=== PATIENT | male | born 1950 | race Caucasian/White ===

== ENCOUNTER 2018-08-28 17:02 | Emergency (ER) | payer MEDICARE, BC ==
--- NOTE | 2018-08-28 19:15 | CRLCR ---
INDICATION: Fever TECHNIQUE: Chest 2 views COMPARISON: July 10, 2008. FINDINGS: Cardiovascular and mediastinum: Heart size and vasculature are normal in caliber and appearance. Lungs and pleural spaces: Lungs are clear. No sign of infiltrate or mass. No sign of pleural effusion. No pneumothorax. Bones and soft tissues: No significant findings. IMPRESSION: Unremarkable chest. No sign of pneumonia. Dictated by Gatito Díaz MD @ Aug 28 2018 7:12PM Signed by Dr. Gatito Díaz @ Aug 28 2018 7:13PM
--- NOTE | 2018-08-28 21:50 | EDM.PDOC ---
ED HPI GENERAL MEDICAL PROBLEM - General Chief Complaint: Fever Stated Complaint: fever surgery 5 wks ago Time Seen by Provider: 08/28/18 18:08 Source of Information: Reports: Patient History Limitations: Reports: No Limitations - History of Present Illness INITIAL COMMENTS - FREE TEXT/NARRATIVE: This gentleman who is a heart transplant patient was seen in clinic today because of a fever which started this morning. The patient is on immunosuppression. Also he had a right total knee replacement about 6 weeks ago. He had just a little bit of cough last night but nothing serious he's not having any kind of body aches. He said his right knee is hurting just a little bit more than usual but he stopped taking his tramadol this morning. He said his knee is always a little bit red and always feels a little bit warm. His agreed with him as but she thought there might be a little tiny bit of redness to the lateral side of the the. He's walking on it and it doesn't seem to bother him more than normal. Overall he doesn't have any particular symptoms of an infection. He did mention that he had a gangrenous gallbladder sometime back and had no abdominal pain with it is because he doesn't get much abdominal pain ever since the heart transplant. He's followed at [facility] by the heart team and orthopedics. He has an appointment with or though on Friday or 4 days from now - Related Data Allergies Allergy/AdvReac Type Severity Reaction Status Date / Time amoxicillin trihydrate AdvReac Diarrhea Verified 08/28/18 17:33 [From Augmentin] meperidine HCl [From Demerol] AdvReac Nausea Verified 08/28/18 17:33 pantoprazole sodium AdvReac Dizziness Verified 08/28/18 17:33 [From Protonix] potassium clavulanate AdvReac Diarrhea Verified 08/28/18 17:33 [From Augmentin] Home Meds: Home Meds Acarbose [Precose] 25 mg PO TID 02/14/14 [History] Aspirin [Adult Low Dose Aspirin EC] 1 tab PO BID 02/14/14 [History] Calcium Carbonate/Vitamin D3 [Calcium 500-Vit D3 200 Caplet] 2 each PO ACBREAKFAST 02/14/14 [History] Cholecalciferol (Vitamin D3) [Vitamin D3] 5,000 unit PO DAILY 02/14/14 [History] Cyanocobalamin (Vitamin B-12) [Cyanocobalamin Injection] 1,000 mcg IJ ASDIRECTED 02/14/14 [History] Fluticasone Propionate [Flonase] 1 spray HUONG BID 02/14/14 [History] Hydrocodone/Acetaminophen [[place] 7.5-325] 1 tab PO Q6HR PRN 02/14/14 [History] Levothyroxine [Synthroid] 50 mcg PO ACBRK 02/14/14 [History] Lisinopril 15 mg PO BID 02/14/14 [History] Multivitamin [Multi-Vitamin Daily] 1 tab PO DAILY 02/14/14 [History] Mycophenolate Mofetil [Cellcept] 1,000 mg PO BID 02/14/14 [History] Ondansetron [Zofran] 4 mg PO ASDIRECTED PRN 02/14/14 [History] Verapamil [Calan SR] 180 mg PO BEDTIME 02/14/14 [History] Zolpidem Tartrate [Ambien] 10 mg PO ASDIRECTED PRN 02/14/14 [History] cycloSPORINE, Modified [Neoral] 70 mg PO BID 02/14/14 [History] traMADol [Ultram] 50 mg PO Q6HR PRN 02/14/14 [History] Loratadine [Claritin] 10 mg PO DAILY 03/27/16 [History] diphenhydrAMINE [Benadryl] 25 mg PO Q4H PRN 03/27/16 [History] Pravastatin Sodium 1 tab PO BEDTIME 03/04/18 [History] Magnesium Oxide [Magnesium] 400 mg PO DAILY 03/05/18 [History] Past Medical History HEENT History: Reports: Sinusitis Other HEENT History: from CPAP Cardiovascular History: Reports: [place] Respiratory History: Reports: Pneumonia, Recurrent, Sleep Apnea Gastrointestinal History: Reports: Bowel Obstruction, Other (See Below) Other Gastrointestinal History: RNY Genitourinary History: Reports: None Musculoskeletal History: Reports: Arthritis, Back Pain, Chronic, Other (See Below) Other Musculoskeletal History: no tendons in right knee Neurological History: Reports: None Psychiatric History: Reports: None Endocrine/Metabolic History: Reports: Diabetes, Type II, Other (See Below) Other Endocrine/Metabolic History: hypoglycemic Hematologic History: Reports: Other (See Below) Other Hematologic History: plavix pre transplant Immunologic History: Reports: None Oncologic (Cancer) History: Reports: None Dermatologic History: Reports: Melanoma Other Dermatologic History: pre-melanoma - Infectious Disease History Infectious Disease History: Reports: Other (See Below) 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 - Past Surgical History Head Surgeries/Procedures: Reports: None HEENT Surgical History: Reports: None Cardiovascular Surgical History: Reports: Coronary Artery Bypass, Other (See Below) Other Cardiovascular Surgeries/Procedures: heart trasplant - CABG x5 GI Surgical History: Reports: Small Bowel, Other (See Below) Other GI Surgeries/Procedures: harini Male Surgical History: Reports: None Neurological Surgical History: Reports: None Musculoskeletal Surgical History: Reports: Knee Replacement, Other (See Below) Other Musculoskeletal Surgeries/Procedures:: trigger point injections Oncologic Surgical History: Reports: None Dermatological Surgical History: Reports: None Social & Family History - Tobacco Use Smoking Status *Q: Never Smoker - Caffeine Use Caffeine Use: Reports: Soda - Living Situation & Occupation Living situation: Reports: Occupation: Retired ED ROS GENERAL - Review of Systems Review Of Systems: See Below Constitutional: Reports: Fever. Denies: Malaise, Weakness, Fatigue, Night Sweats, Diaphoresis, Decreased Appetite HEENT: Reports: No Symptoms Respiratory: Reports: Cough (Very slight cough nonproductive) Cardiovascular: Reports: No Symptoms Endocrine: Reports: No Symptoms GI/Abdominal: Reports: No Symptoms, Diarrhea (He has chronic diarrhea due to the [place]-en-Y but nothing unusual today). Denies: Abdominal Pain, Distension, Flatus, Hematemesis, Hematochezia, Melena, Nausea, Vomiting : Reports: Other (His urine output is a lot less today but he denies any kind of dysuria) Musculoskeletal: Reports: Other Skin: Reports: Other (See history of present illness see history of present illness) Neurological: Reports: No Symptoms Psychiatric: Reports: No Symptoms, Other ED EXAM, SEPSIS - Physical Exam Exam: See Below Exam Limited By: No Limitations General Appearance: Alert, WD/WN, No Apparent Distress Eye Exam: Bilateral Eye: Normal Inspection Ears: Normal TMs Nose: Normal Inspection, Other (Sinuses nontender) Throat/Mouth: Normal Gums, Normal Oropharynx Head: Atraumatic Neck: Normal Inspection, Supple, Non-Tender Respiratory/Chest: Lungs Clear Cardiovascular: Normal Peripheral Pulses, Regular Rate, Rhythm, No Murmur GI/Abdominal Exam: Soft, Non-Tender, No Distention, No Mass (Male) Exam: Other (Review of systems showed no problems other than decreased urine output) Back: Normal Inspection Extremities: Other (There is a well-healed midline scar the right knee. There is some mild erythema and mildly increased warmth of the right knee but there is no tenderness. There was some fullness both medial and lateral to the upper half of the patella and then extending into the patellar tendon that suggested possibly a little bit of effusion. That area also is nontender.) Neurological: Alert Course - Vital Signs Last Recorded V/S: Last Vital Signs Temp 37.2 C 08/28/18 17:42 Pulse 109 H 08/28/18 17:42 Resp 16 08/28/18 17:42 BP 135/88 08/28/18 17:42 Pulse Ox 100 08/28/18 17:42 - Orders/Labs/Meds Orders: Active Orders 24 hr Category Date Time Status CULTURE BLOOD [BC] Urgent Lab 08/28/18 18:40 Received CULTURE BLOOD [BC] Urgent Lab 08/28/18 18:50 Received Blood Culture x2 Reflex Set [OM.PC] Urgent Oth 08/28/18 18:36 Ordered Labs: Laboratory Tests 08/28/18 08/28/18 08/28/18 Range/Units 18:40 18:40 18:56 ESR 15 (0-20) mm/hr Lactic Acid 1.4 (0.7-2.1) mmol/L C-Reactive Protein 0.22 (0.0-0.3) mg/dL Meds: Medications Discontinued Medications Generic Name Dose Route Start Last Admin Trade Name Stephanie PRN Reason Stop Dose Admin Lidocaine HCl 5 ml 08/28/18 18:58 08/28/18 19:00 Xylocaine-Mpf 1% INJECT 08/28/18 18:59 5 ml ONETIME ONE Administration - Radiology Interpretation Free Text/Narrative:: Chest x-ray showed no acute cardiopulmonary process - Re-Assessments/Exams Free Text/Narrative Re-Assessment/Exam: 08/28/18 21:50 Procedure aspiration of the right knee.: I discussed the risk and benefits of doing the aspiration including the risk of bleeding and infection. I assured the patient that this procedure many times with never had a single infection. He's aware that if he did get an infection he would need IV antibiotics and possibly might need surgery. The knee was carefully prepped with the Chloraseptic surgical prep available here in the ER. Then under sterile technique I entered the knee medial to the upper third of the patella in the area that appeared to the fluctuant. I was never able to actually pull out any joint fluid. All I got was about half milliliter of dark blood which turned out to be clotting blood. Because it clotted obviously it was not joint fluid so no lab evaluation was done. Prior to insertion of the 18- gauge needle he was anesthetized with about 3 mL 1% plain lidocaine using a 27- gauge needle. Labs were reviewed from the clinic and I note he has a white count of 9.7 with a completely normal differential. Hemoglobin is 14.2. Influenza a the negative chemistry profile showed normal electrolytes BUN was 19 and creatinine 1.61 L gives a GFR of 43 mL/m urinalysis showed no WBCs 0-3 RBCs just a rare epithelials and rare bacteria. Culture was not set up. After my exam blood cultures were drawn and also did a lactic acid was 1.4. I spoke with the transplant collections technician at [facility] Dr. Brambila and after detailed discussion of the patient's condition and labs he felt like antibiotics were not warranted. I then spoke with the orthopedic surgeon reclamation supervisor Dr. Del Valle and he asked me to do a sedimentation rate and CRP. Both of those were negative area he felt like an to these circumstances antibiotics would not be necessary but he does want the patient follow-up with Dr. thomas is orthopedic surgeon early this coming week. The patient are he has an appointment for Friday. We'll give them copies of all of labs to take with them. Departure - Departure Time of Disposition: 21:57 Disposition: Home, Self-Care 01 Condition: Fair Clinical Impression: Fever, Heart transplant recipient, Total knee replacement status, Immunosuppression due to drug therapy - Discharge Information Referrals: Harjinder Muñoz MD [Primary Care Provider] - Additional Instructions: Case was discussed with the collections technician Dr. Brambila who felt like he did not need antibiotics. I also spoke with the orthopedist Dr. Del Valle who felt that if all labs were negative then you also did not need any antibiotics for the knee. He would like you to follow-up with Dr. Florian early next week as planned. Go ahead and use her regular pain medications as needed. If you feel like you' re getting worse before then be sure to come back to the emergency department or contact your doctor. Blood cultures were done and if anything comes back positive the emergency department will be contacted and will get a hold of you. It would be a good idea to call Friday before seeing your doctor just to be sure those cultures are still negative. - My Orders Last 24 Hours: My Active Orders 08/28/18 18:36 Blood Culture x2 Reflex Set [OM.PC] Urgent 08/28/18 18:40 CULTURE BLOOD [BC] Urgent 08/28/18 18:50 CULTURE BLOOD [BC] Urgent - Assessment/Plan Last 24 Hours: My Active Orders 08/28/18 18:36 Blood Culture x2 Reflex Set [OM.PC] Urgent 08/28/18 18:40 CULTURE BLOOD [BC] Urgent 08/28/18 18:50 CULTURE BLOOD [BC] Urgent
== END 2018-08-28 22:14 | disposition home or self-care (01) ==
LOC: JP.ED 17:02
DX: R50.9 Fever, unspecified (principal); I25.2 Old myocardial infarction; E11.9 Type 2 diabetes mellitus without complications; Z88.1 Allergy status to other antibiotic agents; Z88.8 Allergy status to other drugs, medicaments and biological substances; Z96.651 Presence of right artificial knee joint; Z79.899 Other long term (current) drug therapy; Z94.1 Heart transplant status
CPT/HCPCS: 20610; 36415; 71046; 83605; 85651; 86140; 87040; 99283; 99284; J2001

== ENCOUNTER 2019-02-23 08:09 | Day surgery (SDC) | payer MEDICARE, BC ==
[2019-02-23] MEDS ORDERED: Dextrose 5%-Lactated Ringers 1,000 ML IV SCH (08:30)
[2019-02-23] MEDS ORDERED: Meropenem 500 MG in Sodium Chloride 0.9% 50 ML IV ONE (09:00)
[2019-02-23] MEDS ORDERED: Propofol 200 MG/20 ML SDV ONE (09:31)
[2019-02-23] MEDS ORDERED: fentaNYL 100 MCG/2 ML SDV ONE (09:31)
[2019-02-23] MEDS ORDERED: Midazolam 1 MG/ML 2 ML SDV ONE (09:31)
--- NOTE | 2019-02-25 13:00 | OR ---
DATE OF PROCEDURE: 02/23/2019 SURGEON: Nik Pulido MD PREOPERATIVE DIAGNOSIS: Indications for screening colonoscopy. POSTOPERATIVE DIAGNOSES: 1. Indications for screening colonoscopy. 2. Left colonic diverticulosis. OPERATIVE PROCEDURE: Flexible colonoscopy. ANESTHESIA: IV sedation. INDICATION FOR PROCEDURE: A 68-year-old presenting for a screening colonoscopy. The patient does have some family history of colon carcinoma. The plan is proceed with a colonoscopy with biopsies and/or polypectomy as indicated. Potential risks including bleeding and perforation were discussed, and the patient wishes to proceed. DETAILS OF PROCEDURE: The patient was taken to the operating room and placed in a left lateral decubitus position. IV sedation was administered, after which the initial digital rectal exam was performed, was unremarkable. Colonoscope was passed into the rectum with retroflexion revealing uncomplicated hemorrhoidal columns. The scope was eventually passed to the level of the cecum. The prep was fairly good with only a small amount of liquid stool and few scattered balls of stool coming from the diverticular encountered. The patient had quite extensive left colonic diverticulosis. This however was complicated with no stricturing or areas of inflammation acutely identified. Beyond that there were no areas of colitis, areas of polyps or other signs of neoplasia. Scope was then withdrawn, the above findings reconfirmed, and the procedure then concluded. Due to the patient's heart transplant and immunosuppressed status, the patient and family were instructed that, should he develop left lower quadrant pain or lower abdominal pain in general, they should be alert to the possibility of diverticulitis and present early following the onset of the symptoms such as those. Otherwise, with the family history, he should have a repeat colonoscopy in 5 years. Nik Pulido MD /[id number]
== END 2019-02-23 11:35 | disposition home or self-care (01) ==
LOC: JP.SDS 08:09
PROVIDERS: ATTEND Surgery
DX: Z12.11 Encounter for screening for malignant neoplasm of colon (principal); K57.30 Diverticulosis of large intestine without perforation or abscess without bleeding; K64.9 Unspecified hemorrhoids; G47.33 Obstructive sleep apnea (adult) (pediatric); K21.9 Gastro-esophageal reflux disease without esophagitis; I12.9 Hypertensive chronic kidney disease with stage 1 through stage 4 chronic kidney disease, or unspecified chronic kidney disease; E11.22 Type 2 diabetes mellitus with diabetic chronic kidney disease; N18.3 Chronic kidney disease, stage 3 (moderate); K90.9 Intestinal malabsorption, unspecified; Z80.0 Family history of malignant neoplasm of digestive organs; Z94.1 Heart transplant status; Z99.89 Dependence on other enabling machines and devices
CPT/HCPCS: J2185; J2250; J2704; J3010; J7042; J7050

== ENCOUNTER 2020-07-30 16:35 | Emergency (ER) | payer MEDICARE, BC ==
[2020-07-30] MEDS ORDERED: Ondansetron 4 MG/2 ML SDV ONE (16:53)
[2020-07-30] MEDS ORDERED: fentaNYL 100 MCG/2 ML SDV IVPUSH ONE ×2 (17:04→19:13)
[2020-07-30] MEDS ORDERED: Lactated Ringers 1,000 ML IV ONE (17:04)
[2020-07-30] MEDS ORDERED: Sodium Chloride 0.9% 10 ML Syringe FLUSH PRN (17:04)
--- NOTE | 2020-07-30 17:08 | EDM.PDOC ---
<OfficerZaki - Last Filed: 07/30/20 17:06> ED HPI GENERAL MEDICAL PROBLEM - General Chief Complaint: Gastrointestinal Problem Stated Complaint: ABDOMINAL PAIN/NAUSEA Time Seen by Provider: 07/30/20 17:03 Source of Information: Reports: Patient, Family, RN Notes Reviewed History Limitations: Reports: No Limitations - History of Present Illness INITIAL COMMENTS - FREE TEXT/NARRATIVE: 69-year-old gentleman presents emergency department a complaint of abdominal pain, he has a history of gastric bypass approximately 16 years ago does have a history of bowel obstruction with a significant resection. He states this particular event the abdominal pain started this morning he has had retching and nausea with increasing pain decreased bowel movements - Related Data Allergies Allergy/AdvReac Type Severity Reaction Status Date / Time amoxicillin trihydrate AdvReac Diarrhea Verified 07/30/20 17:01 [From Augmentin] meperidine HCl [From Demerol] AdvReac Nausea Verified 07/30/20 17:01 pantoprazole sodium AdvReac Dizziness Verified 07/30/20 17:01 [From Protonix] potassium clavulanate AdvReac Diarrhea Verified 07/30/20 17:01 [From Augmentin] Home Meds: Home Meds Acarbose [Precose] 25 mg PO TID 02/14/14 [History] Aspirin [Adult Low Dose Aspirin EC] 1 tab PO DAILY 02/14/14 [History] Calcium Carbonate/Vitamin D3 [Calcium 500-Vit D3 200 Caplet] 2 each PO ACBREAKFAST 02/14/14 [History] Cholecalciferol (Vitamin D3) [Vitamin D3] 5,000 unit PO DAILY 02/14/14 [History] Cyanocobalamin (Vitamin B-12) [Cyanocobalamin Injection] 1,000 mcg IJ ASDIRECTED 02/14/14 [History] Hydrocodone/Acetaminophen [[place] 7.5-325] 1 tab PO Q6HR PRN 02/14/14 [History] Levothyroxine [Synthroid] 50 mcg PO ACBRK 02/14/14 [History] Lisinopril 10 mg PO BID 02/14/14 [History] Multivitamin [Multi-Vitamin Daily] 1 tab PO DAILY 02/14/14 [History] Ondansetron [Zofran] 4 mg PO ASDIRECTED PRN 02/14/14 [History] Verapamil [Calan SR] 180 mg PO BEDTIME 02/14/14 [History] Zolpidem Tartrate [Ambien] 10 mg PO ASDIRECTED PRN 02/14/14 [History] cycloSPORINE, Modified [Neoral] 70 mg PO BID 02/14/14 [History] mycophenolate mofetiL [Cellcept] 1,000 mg PO BID 02/14/14 [History] Loratadine [Claritin] 10 mg PO DAILY 03/27/16 [History] diphenhydrAMINE [Benadryl] 25 mg PO Q4H PRN 03/27/16 [History] Pravastatin Sodium 40 mg PO BEDTIME 03/04/18 [History] Magnesium Oxide [Magnesium] 400 mg PO DAILY 03/05/18 [History] Past Medical History HEENT History: Reports: Cataract, Sinusitis Other HEENT History: from CPAP Cardiovascular History: Reports: Bypass, [place], Other (See Below) Respiratory History: Reports: Pneumonia, Recurrent, Sleep Apnea Gastrointestinal History: Reports: Bowel Obstruction, Other (See Below) Other Gastrointestinal History: RNY Genitourinary History: Reports: Chronic Renal Insuffiency, Prostate Disorder, Other (See Below) Other Genitourinary History: enlarged prostate; "low kidney function" Musculoskeletal History: Reports: Arthritis, Back Pain, Chronic, Other (See Below) Other Musculoskeletal History: no tendons in right knee Neurological History: Reports: Vertigo Psychiatric History: Reports: Anxiety, Depression Endocrine/Metabolic History: Reports: Diabetes, Type II, Hypothyroidism, Obesity/BMI 30+, Other (See Below) Other Endocrine/Metabolic History: hypoglycemic Hematologic History: Reports: B12 Deficiency, Other (See Below) Other Hematologic History: plavix pre transplant Immunologic History: Reports: Immunosuppression Oncologic (Cancer) History: Reports: None Dermatologic History: Reports: Other (See Below) Other Dermatologic History: pre-cancerous - Infectious Disease History Infectious Disease History: Reports: Chicken Pox, Measles, Mumps, Other (See Below) Other Infectious Disease History: CMV - Past Surgical History Head Surgeries/Procedures: Reports: None HEENT Surgical History: Reports: None, Tonsillectomy Cardiovascular Surgical History: Reports: Coronary Artery Bypass, Other (See Below) Other Cardiovascular Surgeries/Procedures: heart trasplant - CABG x5 Respiratory Surgical History: Reports: None GI Surgical History: Reports: Bariatric Procedure, Cholecystectomy, Small Bowel, Other (See Below) Other GI Surgeries/Procedures: harini Male Surgical History: Reports: None Neurological Surgical History: Reports: Other (See Below) Other Neurological Surgeries/Procedures: degenerative disc disease Musculoskeletal Surgical History: Reports: Knee Replacement, Other (See Below) Other Musculoskeletal Surgeries/Procedures:: trigger point injections Oncologic Surgical History: Reports: None Dermatological Surgical History: Reports: Skin Biopsy Social & Family History - Family History Family Medical History: No Pertinent Family History - Caffeine Use Caffeine Use: Reports: Soda - Living Situation & Occupation Living situation: Reports: Occupation: Retired ED ROS GENERAL - Review of Systems Review Of Systems: See Below Constitutional: Denies: Fever, Chills HEENT: Reports: No Symptoms Respiratory: Reports: No Symptoms Cardiovascular: Reports: No Symptoms GI/Abdominal: Reports: Abdominal Pain, Nausea, Vomiting. Denies: Constipation, Diarrhea : Reports: No Symptoms ED EXAM, GI/ABD - Physical Exam Exam: See Below Exam Limited By: No Limitations General Appearance: Alert, Mild Distress Respiratory/Chest: No Respiratory Distress, Lungs Clear, Normal Breath Sounds, No Accessory Muscle Use, Chest Non-Tender Cardiovascular: Regular Rate, Rhythm, No Murmur GI/Abdominal Exam: Normal Bowel Sounds, Soft, Tender (Generalized) Departure - Departure Disposition: DC/Tfer to Other 70 Clinical Impression: Small bowel obstruction Nausea & vomiting Qualifiers: Vomiting type: unspecified Vomiting Intractability: non-intractable Qualified Code(s): R11.2 - Nausea with vomiting, unspecified - Discharge Information Referrals: Harjinder Muñoz MD [Primary Care Provider] - Forms: ED Department Discharge Care Plan Goals: Patient is to be transferred urgently by air to [facility] by the surgical department and hospitalist Dr. Fu. NG tube will be left in place with fluid replacement running. <Harjinder Portillo D - Last Filed: 07/30/20 22:14> Course - Vital Signs Last Recorded V/S: Last Vital Signs Temp 97.5 F 07/30/20 20:18 Pulse 107 H 07/30/20 20:45 Resp 16 07/30/20 17:10 BP 140/89 07/30/20 20:45 Pulse Ox 95 07/30/20 20:45 - Orders/Labs/Meds Orders: Active Orders 24 hr Category Date Time Status Chest 1V Frontal [CR] Stat Exams 07/30/20 18:16 Taken Peripheral IV Insertion Adult [OM.PC] Urgent Oth 07/30/20 17:04 Ordered Labs: Laboratory Tests 07/30/20 07/30/20 07/30/20 Range/Units 17:10 17:10 17:10 WBC 22.1 H (4.5-11.0) K/uL RBC 5.02 (4.30-5.90) M/uL Hgb 15.1 H D (12.0-15.0) g/dL Hct 47.5 (40.0-54.0) % MCV 95 (80-98) fL MCH 30 (27-31) pg MCHC 32 (32-36) % Plt Count 299 (150-400) K/uL Neut % (Auto) 89 H (36-66) % Lymph % (Auto) 6 L (24-44) % [place]ud[place] % (Auto) 5 (2-6) % Eos % (Auto) 0 L (2-4) % Baso % (Auto) 0 (0-1) % PT 11.4 (9.5-12.0) sec INR 1.05 (0.80-1.20) Sodium 140 (140-148) mmol/L Potassium 3.8 (3.6-5.2) mmol/L Chloride 103 (100-108) mmol/L Carbon Dioxide 24 (21-32) mmol/L Anion Gap 13.3 (5.0-14.0) mmol/L BUN 23 H (7-18) mg/dL Creatinine 1.7 H (0.8-1.3) mg/dL Est Cr Clr Drug Dosing 47.68 mL/min Estimated GFR (MDRD) 40 L (>60) Glucose 160 H (74-106) mg/dL Lactic Acid (0.4-2.0) mmol/L Calcium 9.3 (8.5-10.1) mg/dL Total Bilirubin 1.2 H (0.2-1.0) mg/dL AST 31 (15-37) U/L ALT 27 (12-78) U/L Alkaline Phosphatase 94 (46-116) U/L Troponin I 0.019 (0.000-0.056) ng/mL Total Protein 7.6 (6.4-8.2) g/dL Albumin 4.2 (3.4-5.0) g/dL Globulin 3.4 (2.3-3.5) g/dL Albumin/Globulin Ratio 1.2 (1.2-2.2) Lipase 4560 H (73-393) U/L Urine Color (YELLOW) Urine Appearance (CLEAR) Urine pH (5.0-8.0) Ur Specific Standish (1.008-1.030) Urine Protein (NEGATIVE) mg/dL Urine Glucose (UA) (NEGATIVE) mg/dL Urine Ketones (NEGATIVE) mg/dL Urine Occult Blood (NEGATIVE) Urine Nitrite (NEGATIVE) Urine Bilirubin (NEGATIVE) Urine Urobilinogen (0.2-1.0) EU/dL Ur Leukocyte Esterase (NEGATIVE) Urine RBC (0-5) Urine WBC (0-5) Ur Epithelial Cells Amorphous Sediment Urine Bacteria Urine Mucus 07/30/20 07/30/20 Range/Units 17:10 18:07 WBC (4.5-11.0) K/uL RBC (4.30-5.90) M/uL Hgb (12.0-15.0) g/dL Hct (40.0-54.0) % MCV (80-98) fL MCH (27-31) pg MCHC (32-36) % Plt Count (150-400) K/uL Neut % (Auto) (36-66) % Lymph % (Auto) (24-44) % [place]ud[place] % (Auto) (2-6) % Eos % (Auto) (2-4) % Baso % (Auto) (0-1) % PT (9.5-12.0) sec INR (0.80-1.20) Sodium (140-148) mmol/L Potassium (3.6-5.2) mmol/L Chloride (100-108) mmol/L Carbon Dioxide (21-32) mmol/L Anion Gap (5.0-14.0) mmol/L BUN (7-18) mg/dL Creatinine (0.8-1.3) mg/dL Est Cr Clr Drug Dosing mL/min Estimated GFR (MDRD) (>60) Glucose (74-106) mg/dL Lactic Acid 2.6 H (0.4-2.0) mmol/L Calcium (8.5-10.1) mg/dL Total Bilirubin (0.2-1.0) mg/dL AST (15-37) U/L ALT (12-78) U/L Alkaline Phosphatase (46-116) U/L Troponin I (0.000-0.056) ng/mL Total Protein (6.4-8.2) g/dL Albumin (3.4-5.0) g/dL Globulin (2.3-3.5) g/dL Albumin/Globulin Ratio (1.2-2.2) Lipase (73-393) U/L Urine Color Yellow (YELLOW) Urine Appearance Clear (CLEAR) Urine pH 5.0 (5.0-8.0) Ur Specific Stand[place] 1.020 (1.008-1.030) Urine Protein 30 H (NEGATIVE) mg/dL Urine Glucose (UA) Negative (NEGATIVE) mg/dL Urine Ketones 15 H (NEGATIVE) mg/dL Urine Occult Blood Negative (NEGATIVE) Urine Nitrite Negative (NEGATIVE) Urine Bilirubin Small H (NEGATIVE) Urine Urobilinogen 0.2 (0.2-1.0) EU/dL Ur Leukocyte Esterase Negative (NEGATIVE) Urine RBC 0-5 (0-5) Urine WBC 0-5 (0-5) Ur Epithelial Cells Occasional Amorphous Sediment Occasional Urine Bacteria Occasional Urine Mucus Occasional Meds: Medications Discontinued Medications Generic Name Dose Route Start Last Admin Trade Name Stephanie PRN Reason Stop Dose Admin Fentanyl 50 mcg 07/30/20 17:04 07/30/20 17:18 Sublimaze IVPUSH 07/30/20 17:05 50 mcg ONETIME ONE Administration Fentanyl 50 mcg 07/30/20 19:13 07/30/20 19:32 Sublimaze IVPUSH 07/30/20 19:14 50 mcg ONETIME ONE Administration Haloperidol Lactate 3 mg 07/30/20 21:40 07/30/20 21:56 Haldol IVPUSH 07/30/20 21:41 3 mg ONETIME ONE Administration Lactated Ringer's 1,000 mls @ 999 mls/hr 07/30/20 17:04 07/30/20 17:18 Ringers, Lactated IV 07/30/20 18:04 999 mls/hr BOLUS ONE Administration Sodium Chloride 85 mls @ 3.5 mls/sec 07/30/20 17:45 07/30/20 18:19 Normal Saline IV 3 mls/sec ASDIRECTED CARLITOS Administration Iopamidol 150 ml 07/30/20 17:31 07/30/20 18:17 Isovue-300 (61%) IV 07/30/20 17:32 100 ml ONETIME ONE Administration Lorazepam 0.5 mg 07/30/20 21:39 07/30/20 21:56 Ativan IVPUSH 07/30/20 21:40 0.5 mg ONETIME ONE Administration Metoclopramide HCl Confirm 07/30/20 19:55 Reglan Administered 07/30/20 19:56 Dose 10 mg .ROUTE .STK-MED ONE Metoclopramide HCl 10 mg 07/30/20 19:58 07/30/20 20:05 Reglan IVPUSH 07/30/20 19:59 10 mg ONETIME ONE Administration Ondansetron HCl Confirm 07/30/20 16:53 07/30/20 17:18 Zofran Administered 07/30/20 16:54 4 mg Dose Administration 4 mg .ROUTE .STK-MED ONE Ondansetron HCl 4 mg 07/30/20 17:20 07/30/20 17:22 Zofran IVPUSH 07/30/20 17:21 4 mg ONETIME ONE Administration Ondansetron HCl 4 mg 07/30/20 19:13 07/30/20 19:32 Zofran IVPUSH 07/30/20 19:14 4 mg ONETIME ONE Administration Sodium Chloride 10 ml 07/30/20 17:04 07/30/20 17:19 Saline Flush FLUSH 10 ml ASDIRECTED PRN Administration Keep Vein Open Sodium Chloride 10 ml 07/30/20 17:31 07/30/20 18:19 Saline Flush FLUSH 07/30/20 17:32 10 ml ONETIME ONE Administration - Re-Assessments/Exams Free Text/Narrative Re-Assessment/Exam: 07/30/20 18:48 IMPRESSION: 1. Distal small bowel obstruction in the right lower quadrant just beyond an anastomosis, presumably due to an adhesion. Short segment of narrowing just proximal to the anastomosis suspected suspected to be secondary to an adhesion as well. 2. Post gastric bypass with Kanwal-en-Y and cholecystectomy. 3. Mild cardiomegaly. 4. Colonic diverticulosis. 07/30/20 19:12 NG tube was placed without complications, patient still had nausea and pain so was given 4 mg of IV Zofran and [address] Pulido wanted the patient admitted to the hospitalist service, Dr. Bey was contacted. 07/30/20 21:13 Patient struggled with some persistent nausea and a few emesis after the NG placement but responded well to 10 mg of IV Reglan. Phone consultation was made with [facility] and he was eventually accepted to the medical floor with surgical consultation, accepted by Dr. Fu at 9:10 PM Departure - Departure Time of Disposition: 22:11 Sepsis Event Note (ED) - Focused Exam Vital Signs: Vital Signs Temp Pulse Resp BP Pulse Ox 07/30/20 20:45 107 H 140/89 95 07/30/20 20:18 97.5 F 107 H 147/92 H 95 07/30/20 17:44 93 137/79 07/30/20 17:10 95.5 F L 87 16 120/78 93 L 07/30/20 16:48 95.5 F L 87 16 120/78 93 L - My Orders Last 24 Hours: My Active Orders 07/30/20 18:16 Chest 1V Frontal [CR] Stat - Assessment/Plan Last 24 Hours: My Active Orders 07/30/20 18:16 Chest 1V Frontal [CR] Stat
[2020-07-30] MEDS ORDERED: Ondansetron 4 MG/2 ML SDV IVPUSH ONE ×2 (17:20→19:13)
[2020-07-30] MEDS ORDERED: Sodium Chloride 0.9% 10 ML Syringe FLUSH ONE (17:31)
[2020-07-30] MEDS ORDERED: Iopamidol 612 MG/ML 500 ML Multipack Bottle IV ONE (17:31)
--- NOTE | 2020-07-30 18:44 | CRLCT ---
INDICATION: Nausea vomiting. RNY pain. TECHNIQUE: Volumetric helical scanning of the abdomen and pelvis was performed with 100 cc of Isovue-300 contrast material IV. Coronal and sagittal reconstructions were obtained. COMPARISON: Abdomen/pelvis CT of 10/19/2013. FINDINGS: Postop changes of gastric bypass with Kanwal-en-Y are again demonstrated. A distal small-bowel obstruction is demonstrated. Several centimeters beyond the anastomosis there is a transition point suspected to be related to an adhesion. A short segment of narrowing just proximal to the anastomosis is also noted and could be related to an adhesion as well. No mass or inflammatory process is apparent. No bowel wall thickening, free fluid or free air is demonstrated. The bowel is otherwise unremarkable except for colonic diverticulosis The liver is normal in size, shape and attenuation. No bile duct dilation is evident. Post op changes of cholecystectomy are demonstrated. The spleen, adrenal glands and kidneys are unremarkable. The pancreas is unremarkable except for mild pancreatic ductal dilation to 3-4 mm. The lymphadenopathy is noted. The prostate is unremarkable. The left diaphragm is mildly elevated. The lung bases are clear. Heart is mildly enlarged. IMPRESSION: 1. Distal small bowel obstruction in the right lower quadrant just beyond an anastomosis, presumably due to an adhesion. Short segment of narrowing just proximal to the anastomosis suspected suspected to be secondary to an adhesion as well. 2. Post gastric bypass with Kanwal-en-Y and cholecystectomy. 3. Mild cardiomegaly. 4. Colonic diverticulosis. Please note that all CT scans at this facility use dose modulation, iterative reconstruction, and/or weight-based dosing when appropriate to reduce radiation dose to as low as reasonably achievable. Dictated by Andreas Samson MD @ Jul 30 2020 6:26PM Signed by Dr. Andreas Samson @ Jul 30 2020 6:43PM
[2020-07-30] MEDS ORDERED: Metoclopramide 10 MG/2 ML SDV ONE (19:55)
[2020-07-30] MEDS ORDERED: Metoclopramide 10 MG/2 ML SDV IVPUSH ONE (19:58)
[2020-07-30] MEDS ORDERED: LORazepam 2 MG/ML SDV IVPUSH ONE (21:39)
[2020-07-30] MEDS ORDERED: Haloperidol Lactate 5 MG/ML SDV IVPUSH ONE (21:40)
--- NOTE | 2020-07-31 09:24 | CR ---
CHEST: Portable 07/30/2020 at 7:43 PM CLINICAL HISTORY:NG tube placement, SBO COMPARISON:2019 FINDINGS: There is elevation left hemidiaphragm. This may be exaggerated by gastric distention. There are some patchy atelectasis at the left lung base. There is an NG tube in the distal third of the esophagus approximately 8 cm above the GE junction. Heart is mildly enlarged. Patient has had previous sternotomy. IMPRESSION: Moderate elevation left hemidiaphragm likely related in part to gastric distention. NG tube in the distal third of the trachea described above Patchy left basal atelectasis
== END 2020-07-30 22:13 | disposition other institution (70) ==
LOC: JP.ED 16:35
DX: K56.609 Unspecified intestinal obstruction, unspecified as to partial versus complete obstruction (principal); I25.2 Old myocardial infarction; N18.9 Chronic kidney disease, unspecified; E11.9 Type 2 diabetes mellitus without complications; E03.9 Hypothyroidism, unspecified; M19.90 Unspecified osteoarthritis, unspecified site; E66.9 Obesity, unspecified; Z68.29 Body mass index [BMI] 29.0-29.9, adult; Z88.0 Allergy status to penicillin; Z88.8 Allergy status to other drugs, medicaments and biological substances; Z88.1 Allergy status to other antibiotic agents; Z79.82 Long term (current) use of aspirin; Z79.899 Other long term (current) drug therapy
CPT/HCPCS: 36415; 43752; 71045; 74177; 80053; 81001; 83605; 83690; 84484; 85025; 85610; 96374; 96375; 96376; 99285; J1630; J2060; J2405; J2765; J3010; J7120; Q9967

== ENCOUNTER 2023-09-30 13:58 | Emergency (ER) | payer MEDICARE, BC | END 2023-09-30 20:14 | LOC: JP.ED 13:58 | DX: I13.0 Hypertensive heart and chronic kidney disease with heart failure and stage 1 through stage 4 chronic kidney disease, or unspecified chronic kidney disease (principal); I50.9 Heart failure, unspecified; N18.9 Chronic kidney disease, unspecified; E11.22 Type 2 diabetes mellitus with diabetic chronic kidney disease; E03.9 Hypothyroidism, unspecified; I25.10 Atherosclerotic heart disease of native coronary artery without angina pectoris; E78.00 Pure hypercholesterolemia, unspecified; I25.2 Old myocardial infarction; I12.9 Hypertensive chronic kidney disease with stage 1 through stage 4 chronic kidney disease, or unspecified chronic kidney disease; Z88.0 Allergy status to penicillin; Z79.82 Long term (current) use of aspirin; Z95.1 Presence of aortocoronary bypass graft | CPT/HCPCS: 99285 ==